=== PATIENT | female | born 1965 | race Caucasian/White ===

== ENCOUNTER 2016-11-25 10:31 | Emergency (ER) | payer OTHER ==
[~2016-11-25] VITALS: Ht 167.6 cm; Wt 106.8 kg
[~2016-11-25 10:31] MED LIST: ESOM20CA PO
[2016-11-25 10:33] VITALS: Ht 167.6 cm; Wt 106.8 kg
--- NOTE | 2016-11-25 11:32 | ERA ---
ER Documentation Chief Complaint Date/Time DATE: 11/25/16 TIME: 11:32 Chief Complaint High blood pressure HPI The patient is a 51-year-old female, presenting with high blood pressure 220/ 130 around 9:30 AM today, complains of headache, complains of tingling in hands and legs. She had similar symptoms previously. She is under a lot of stress, denies syncope, near syncope, neck pain. She complains of transient chest discomfort while she was waiting in the ER, denies any chest pain, dyspnea, abdominal pain, vomiting, dysuria, diarrhea, constipation. She does not smoke nor drink Past medical history: History of cardiac arrhythmia, status post ablation 8 years ago, anxiety. Past surgical history: Gastric sleeve 5 years ago, appendectomy ROS All systems reviewed and are negative except as per history of present illness. Medications Home Meds Reported Medications Ferrous Sulfate* (Ferrous Sulfate*) 325 Mg Tabec, 325 MG PO DAILY, TAB 11/25/16 Esomeprazole Mag Trihydrate (Nexium) 20 Mg Capsule.dr, 20 MG PO DAILY 02/15/12 Allergies Allergies: Coded Allergies: codeine (Verified Allergy, Unknown, 11/25/16) morphine (Verified Allergy, Unknown, 11/25/16) PMhx/Soc History of Surgery: Yes (GASTRIC SURGERY) Anesthesia Reaction: No Hx Neurological Disorder: No Hx Respiratory Disorders: No Hx Cardiac Disorders: Yes (CARDIAC PROBLEMS) Hx Psychiatric Problems: No Hx Miscellaneous Medical Probl: No Hx Alcohol Use: No Hx Substance Use: No Hx Tobacco Use: No Physical Exam Vitals Vital Signs Date Time Temp Pulse Resp B/P Pulse Ox O2 Delivery O2 Flow Rate FiO2 11/25/16 14:20 98.0 70 18 149/87 100 Room Air 11/25/16 12:30 67 18 142/85 99 Room Air 11/25/16 10:33 98.4 88 20 181/96 99 Physical Exam Const: No acute distress.Very anxious Head: Atraumatic. Eyes: Normal Conjunctiva. ENT: Normal External Ears, Nose and Mouth. Neck: Full range of motion. No meningismus. Resp: Clear to auscultation bilaterally. Cardio: Regular rate and rhythm. Abd: Soft, non distended, normal bowel sounds, non tender. Skin: No petechiae or rashes. Back: No midline or flank tenderness. Ext: No cyanosis, or edema. Neur: Awake and alert. No focal deficit Psych: Normal Mood and Affect. Result Diagram: 11/25/16 1148 11/25/16 1148 Results 24 hrs Laboratory Tests Test 11/25/16 11:48 White Blood Count 6.110^3/ul Red Blood Count 5.4410^6/ul Hemoglobin 12.4g/dl Hematocrit 42.0% Mean Corpuscular Volume 77.2fl Mean Corpuscular Hemoglobin 22.8pg Mean Corpuscular Hemoglobin Concent 29.5g/dl Red Cell Distribution Width 21.5% Platelet Count 04145^3/UL Mean Platelet Volume 11.0fl Neutrophils % 44.2% Lymphocytes % 44.0% Monocytes % 9.2% Eosinophils % 1.5% Basophils % 0.8% Nucleated Red Blood Cells % 0.0/100WBC Neutrophils # (Manual) 2.710^3/ul Lymphocytes # 2.710^3/ul Monocytes # 0.610^3/ul Eosinophils # 0.110^3/ul Basophils # 0.110^3/ul Nucleated Red Blood Cells # 0.010^3/ul Prothrombin Time 11.9Sec Prothrombin Time Ratio 0.9 INR International Normalized Ratio 0.88 Activated Partial Thromboplast Time 25.0Sec Sodium Level 146mmol/L Potassium Level 4.3mmol/L Chloride Level 107mmol/L Carbon Dioxide Level 27mmol/L Anion Gap 16 Blood Urea Nitrogen 13mg/dl Creatinine 0.76mg/dl Glucose Level 103mg/dl Calcium Level 9.7mg/dl Troponin I < 0.012ng/ml Current Medications Medications (Trade) Dose Ordered Sig/Wali Route PRN Reason Start Time Stop Time Status Last Admin Dose Admin Lorazepam (Ativan) 0.5 mg ONCE ONCE PO 11/25/16 12:00 11/25/16 12:01 DC 11/25/16 11:45 Procedures/MDM [place] [id number] Radiology Main Line: [phone] DIAGNOSTIC IMAGING REPORT Patient: ROBBIE ROMERO : 1965 Age: 51 Sex: F MR #: [id number] DOS: 11/25/16 1139 Ordering MD: OG SYKES MD Location: E/R Room/Bed: PROCEDURE: CT Brain without contrast. CLINICAL INDICATION: Headache. TECHNIQUE: A CT of the brain was performed on multidetector high-resolution CT scanner utilizing axial sections from the skull base through the vertex without contrast. The scan was reviewed in soft tissue brain and high frequency resolution bone algorithm windows. Images were reviewed on a high- resolution PACS workstation. One or more the following does reduction techniques were utilized: Automated exposure control, adjustment of the mA/ or kV according to patient's size, or use of iterative reconstruction technique. The exam CTDI = 43.3 mGy and the DLP = 720.23 mGy-cm. COMPARISON: None available. FINDINGS: The ventricles and sulci are minimally prominent indicative of volume loss. There is no intracranial hemorrhage, mass effect or midline shift. No abnormal intra-axial or extra-axial fluid collections are seen. The morelos/white matter differentiation is preserved. There are minimal scattered foci of hypoattenuation in the white matter, which are nonspecific in etiology but likely reflect chronic small vessel ischemic changes. The visualized paranasal sinuses are essentially clear. IMPRESSION: 1. No acute intracranial hemorrhage, transcortical infarction or mass effect. 2. Minimal chronic small vessel ischemic changes. 3. Minimal generalized cerebral volume loss. RPTAT: HH .Yamileth Canales MD, MD Date Time Electronically viewed and signed by .Yamileth Canales MD, MD on 11/25/2016 13: 26 .N/ CC: OG SYKES MD [place] [id number] Radiology Main Line: [phone] DIAGNOSTIC IMAGING REPORT Patient: ROBBIE ROMERO : 1965 Age: 51 Sex: F MR #: [id number] DOS: 11/25/16 1139 Ordering MD: OG SYKES MD Location: E/R Room/Bed: PROCEDURE: XR Chest. CLINICAL INDICATION: chest pain, shortness of breath TECHNIQUE: Single frontal view of the chest was obtained COMPARISON: None FINDINGS: The heart and mediastinum are within normal limits. The lungs are clear. There is no pleural effusion or pneumothorax. RPTAT: AA IMPRESSION: No acute disease. .Carlos Mora MD, Date Time Electronically viewed and signed by .Carlos Mora MD, on 11/25/2016 12: 18 .S/ CC: OG SYKES MD EKG: At 10:30 AM Read by emergency physician Rate/Rhythm: Normal Sinus Rhythm 76 beats/min QRS, ST, T-waves: No ST elevation, no T inversion, LVH Impression: Abnormal EKG EKG: At 11:35 AM Read by emergency physician Rate/Rhythm: Normal Sinus Rhythm 74 beats/min QRS, ST, T-waves: No ST elevation, no T inversion, LVH Impression: Abnormal EKG MEDICAL MAKING DECISION: The patient is a 51-year-old female, presented with acute anxiety attack, acute elevated blood pressure. She was treated with Ativan 0.5 mg p.o. with good response, blood pressure improved The differential diagnoses considered include but are not limited to subarachnoid hemorrhage, occult trauma, CVA, meningitis, encephalitis, hypertension, tension, migraine, cluster, narcotic withdrawal, cervical spine disease. Departure Diagnosis: Primary Impression: Anxiety Additional Impression: Headache Condition: Good Comments I discussed the findings with the patient. I advised the patient to follow-up with the primary physician in about 1-2 days, sooner if needed and return if any concern. X The patient's blood pressure was elevated (>120/80) but appears stable without evidence of hypertension emergency or urgency. The patient was counseled about the risks of hypertension and urged to pursue outpatient monitoring and therapy within a week with their primary care physician. OG SYKES MD Nov 25, 2016 11:32
[2016-11-25] MEDS ORDERED: LORAZEPAM 0.5 MG TAB PO ONE (12:00)
[2016-11-25 12:09] LABS: BASOPHIL # 0.1 10^3/ul (0.0-0.1); BASOPHILS % 0.8 % (0.0-2.0); EOSINOPHILS # 0.1 10^3/ul (0.0-0.5); EOSINOPHILS % 1.5 % (0.0-7.0); HEMOGLOBIN 12.4 g/dl (12.0-16.0); LYMPHOCYTES # 2.7 10^3/ul (0.8-2.9); MEAN CORPUSCULAR HEMOGLOBIN 22.8 pg (29.0-33.0); MEAN CORPUSCULAR HGB CONC 29.5 g/dl (32.0-37.0); MEAN CORPUSCULAR VOLUME 77.2 fl (82.0-101.0); MONOCYTE # 0.6 10^3/ul (0.3-0.9); MONOCYTES % 9.2 % (0.0-11.0); NEUTROPHILS % 44.2 % (39.0-77.0); PLATELET COUNT 309 10^3/UL (140-415); RED BLOOD COUNT 5.44 10^6/ul (4.20-5.40); RED CELL DISTRIBUTION WIDTH 21.5 % (11.5-14.5); WHITE BLOOD COUNT 6.1 10^3/ul (4.8-10.8)
[2016-11-25] MEDS ORDERED: FER325 PO (12:09)
--- NOTE | 2016-11-25 12:18 | RADRPT ---
PROCEDURE: XR Chest. CLINICAL INDICATION: chest pain, shortness of breath TECHNIQUE: Single frontal view of the chest was obtained COMPARISON: None FINDINGS: The heart and mediastinum are within normal limits. The lungs are clear. There is no pleural effusion or pneumothorax. RPTAT: AA IMPRESSION: No acute disease. .Carlos Mora MD, MD Date Time Electronically viewed and signed by .Carlos Mora MD, on 11/25/2016 12:18 .S/
[2016-11-25 12:45] LABS: ANION GAP 16 (8-16); BLOOD UREA NITROGEN 13 mg/dl (7-20); CALCIUM 9.7 mg/dl (8.4-10.2); CARBON DIOXIDE 27 mmol/L (21-31); CHLORIDE 107 mmol/L (97-110); CREATININE 0.76 mg/dl (0.44-1.00); GLUCOSE 103 mg/dl (70-220); POTASSIUM 4.3 mmol/L (3.5-5.1); SODIUM 146 mmol/L (135-144)
[2016-11-25 12:57] LABS: TROPONIN-I < 0.012 ng/ml (0.00-0.12)
[2016-11-25 12:58] LABS: INR 0.88; PROTIME 11.9 Sec (12.2-14.2); PT RATIO 0.9
--- NOTE | 2016-11-25 13:26 | RADRPT ---
PROCEDURE: CT Brain without contrast. CLINICAL INDICATION: Headache. TECHNIQUE: A CT of the brain was performed on multidetector high-resolution CT scanner utilizing a xial sections from the skull base through the vertex without contrast. The scan was reviewed in sof t tissue brain and high frequency resolution bone algorithm windows. Images were reviewed on a high -resolution PACS workstation. One or more the following does reduction techniques were utilized: Aut omated exposure control, adjustment of the mA/ or kV according to patient's size, or use of iterativ e reconstruction technique. The exam CTDI = 43.3 mGy and the DLP = 720.23 mGy-cm. COMPARISON: None available. FINDINGS: The ventricles and sulci are minimally prominent indicative of volume loss. There is no intracranial hemorrhage, mass effect or midline shift. No abnormal intra-axial or extra-axial fluid collections are seen. The morelos/white matter differentiation is preserved. There are minimal scattered foci of hypoattenuation in the white matter, which are nonspecific in et iology but likely reflect chronic small vessel ischemic changes. The visualized paranasal sinuses a re essentially clear. IMPRESSION: 1. No acute intracranial hemorrhage, transcortical infarction or mass effect. 2. Minimal chronic small vessel ischemic changes. 3. Minimal generalized cerebral volume loss. RPTAT: HH .Yamileth Canales MD, MD Date Time Electronically viewed and signed by .Yamileth Canales MD, MD on 11/25/2016 13:26 .N/
[2016-11-25 14:20] VITALS: BP 149/87; PULSE 70; RESP 18; TEMP 98
== END 2016-11-25 14:28 | disposition home or self-care (01) ==
LOC: E/R 10:31
DX: F41.9 Anxiety disorder, unspecified (principal); R51 Headache; R07.9 Chest pain, unspecified
CPT/HCPCS: 36415; 70450; 71010; 80048; 84484; 85025; 85610; 85730; 93005; Z7502; Z7610

== ENCOUNTER 2017-01-08 19:17 | Emergency (ER) | payer SELFPAY ==
[~2017-01-08 19:17] MED LIST changes: +FER325 PO
== END 2017-01-08 21:00 | disposition left against medical advice (07) ==
LOC: E/R 19:17
DX: Z53.21 Procedure and treatment not carried out due to patient leaving prior to being seen by health care provider (principal)